=== PATIENT | male | born 1955 | race African-American/Black ===

== ENCOUNTER 2021-08-24 06:07 | Inpatient (IN) | payer BC, MEDICAID ==
[~2021-08-24] VITALS: Ht 175.3 cm; Wt 70.8 kg
[2021-08-24] MEDS ORDERED: MECLIZINE 25MG TABLET PO ONE (07:00)
[2021-08-24] MEDS ORDERED: ACETAMINOPHEN 325MG TABLET PO ONE (08:15)
[2021-08-24 09:23] LABS: HEMATOCRIT. 43.7 % (42.0-52.0); HEMOGLOBIN. 14.5 g/dL (14.0-18.0); MEAN CORPUSCULAR HEMOGLOBIN 32.5 pg (28.0-32.0); MEAN CORPUSCULAR VOLUME 98.1 fL (80.0-94.0); MEAN PLATELET VOLUME 8.5 fl (7.4-10.4); PLATELET 205 x1000/uL (130-400); RED BLOOD CELL COUNT 4.46 mill/uL (4.7-6.1); RED CELL DISTRIBUTION WIDTH 13.3 % (11.6-14.6)
[2021-08-24 09:24] LABS: CHLORIDE 107 mEq/L (98-107)
[2021-08-24 10:03] LABS: PLATELET ESTIMATE NORMAL
[2021-08-24 18:15] VITALS: BP 166/90
[2021-08-24] MEDS ORDERED: ONDANSETRON HCL 4MG/2ML INJ IV PRN (19:30)
[2021-08-24 20:00] VITALS: BP 168/92
[2021-08-24] MEDS: ACETAMINOPHEN 325MG TABLET PO PRN (20:05)
[2021-08-24] MEDS: AMLODIPINE 10MG TABLET PO SCH (20:06)
[2021-08-25] VITALS: BP 157/98
[2021-08-25 04:00] VITALS: BP 154/82
[2021-08-25] MEDS: ACETAMINOPHEN 325MG TABLET PO PRN ×2 (04:35→20:31)
[2021-08-25 07:19] LABS: BASOPHILS % 0.9 % (0.0-2.0); EOSINOPHILS % 1.8 % (0.0-5.0); HEMATOCRIT. 46.4 % (42.0-52.0); HEMOGLOBIN. 15.6 g/dL (14.0-18.0); LYMPHOCYTES % 25.6 % (20.0-50.0); MEAN CORPUSCULAR HEMOGLOBIN 32.7 pg (28.0-32.0); MEAN CORPUSCULAR VOLUME 97.1 fL (80.0-94.0); MEAN PLATELET VOLUME 8.3 fl (7.4-10.4); MONOCYTES % 7.5 % (2.0-8.0); NEUTROPHILS % 64.2 % (40.0-76.0); PLATELET 220 x1000/uL (130-400); RED BLOOD CELL COUNT 4.77 mill/uL (4.7-6.1); RED CELL DISTRIBUTION WIDTH 13.5 % (11.6-14.6)
[2021-08-25 07:32] LABS: CHLORIDE 106 mEq/L (98-107)
[2021-08-25 07:39] LABS: LDL CHOLESTEROL 88 mg/dL (5-100)
[2021-08-25 07:40] LABS: HDL CHOLESTEROL 50 mg/dL (40-59)
[2021-08-25 07:55] VITALS: BP 158/82
[2021-08-25] MEDS: AMLODIPINE 10MG TABLET PO SCH (08:54)
[2021-08-25] MEDS: ASPIRIN 81MG TABLET PO SCH (08:54)
[2021-08-25] MEDS: ENOXAPARIN 40MG/0.4ML SYR SUBCUT SCH (08:55)
[2021-08-25 11:45] VITALS: BP 142/89
[2021-08-25 15:33] LABS: CLARITY URINE CLEAR (CLEAR); COLOR URINE YELLOW (YELLOW); KETONES URINE NEGATIVE (NEGATIVE); LEUKOCYTE ESTERASE URINE NEGATIVE (NEGATIVE); NITRITE URINE NEGATIVE (NEGATIVE); OCCULT BLOOD URINE NEGATIVE (NEGATIVE); PROTEIN URINE NEGATIVE (NEGATIVE); SPECIFIC GRAVITY URINE 1.007 (1.005-1.030); UROBILINOGEN URINE 0.2 E.U./dL (0.2-1.0)
[2021-08-25 16:06] VITALS: BP 143/82
[2021-08-25 20:00] VITALS: BP_SYST 145; BP_SYST 158; BP_DIAS 79; BP_DIAS 94
[2021-08-26] VITALS: BP 141/81
[2021-08-26 00:38] LABS: *AMPHETAMINES SCREEN URINE NEGATIVE (NEGATIVE)
[2021-08-26 00:39] LABS: *BARBITURATES SCREEN URINE NEGATIVE (NEGATIVE); *BENZODIAZEPINES SCREEN URINE NEGATIVE (NEGATIVE); *COCAINE SCREEN URINE PRESUMTIVE POSITIVE (NEGATIVE); METHADONE URINE SCREEN NEGATIVE (NEGATIVE); OPIATES URINE SCREEN NEGATIVE (NEGATIVE)
[2021-08-26 00:40] LABS: CANNABINOID URINE SCREEN PRESUMTIVE POSITIVE (NEGATIVE)
[2021-08-26 00:49] LABS: PHENCYCLIDINE URINE SCREEN NEGATIVE (NEGATIVE)
[2021-08-26 04:00] VITALS: BP 151/92
[2021-08-26 08:00] VITALS: BP 150/92
[2021-08-26] MEDS: AMLODIPINE 10MG TABLET PO SCH (09:00)
[2021-08-26] MEDS: ENOXAPARIN 40MG/0.4ML SYR SUBCUT SCH (09:00)
[2021-08-26] MEDS: ASPIRIN 81MG TABLET PO SCH (09:00)
[2021-08-26] MEDS ORDERED: MECLIZINE 25MG TABLET PO PRN (11:00)
[2021-08-26 12:00] VITALS: BP 151/83
[2021-08-26 16:00] VITALS: BP_SYST 156; BP_SYST 165; BP_DIAS 115; BP_DIAS 78
[2021-08-26] MEDS ORDERED: MECL-159 MT (16:50)
[2021-08-26] MEDS ORDERED: AMLO10TA80 PO (16:50)
[2021-08-26] MEDS: ACETAMINOPHEN 325MG TABLET PO PRN (19:59)
[2021-08-26 20:00] VITALS: BP 129/77
[2021-08-27] VITALS: BP 136/87
[2021-08-27 03:59] VITALS: BP_SYST 143; BP_SYST 145; BP_DIAS 90; BP_DIAS 92
[2021-08-27] MEDS: ACETAMINOPHEN 325MG TABLET PO PRN (04:17)
[2021-08-27 08:00] VITALS: BP 157/86
[2021-08-27] MEDS: AMLODIPINE 10MG TABLET PO SCH (09:44)
[2021-08-27] MEDS: ENOXAPARIN 40MG/0.4ML SYR SUBCUT SCH (09:44)
[2021-08-27] MEDS: ASPIRIN 81MG TABLET PO SCH (09:45)
[2021-08-27 10:31] VITALS: BP 157/86
== END 2021-08-27 11:35 | disposition home or self-care (01) | DRG 74 ==
LOC: ER 06:25 → MICUSO 11:41 → 8WST 15:15
PROVIDERS: ADMIT Internal Medicine; ATTEND Internal Medicine
DX: G90.8 Other disorders of autonomic nervous system (principal); D72.825 Bandemia; F17.210 Nicotine dependence, cigarettes, uncomplicated; I10 Essential (primary) hypertension; F14.90 Cocaine use, unspecified, uncomplicated; Z53.29 Procedure and treatment not carried out because of patient's decision for other reasons; R27.0 Ataxia, unspecified; Z71.6 Tobacco abuse counseling
CPT/HCPCS: 36415; 80048; 80053; 80061; 80305; 81003; 82962; 83036; 84145; 84484; 85025; 93005; 93306; 93880; 97162; 99285; J1650; J8597